=== PATIENT | female | born 1950 | race Hispanic/Latino ===

== ENCOUNTER 2020-09-21 03:32 | Emergency (ER) | payer MEDICARE ==
--- NOTE | 2020-09-21 03:57 | Emergency Department Report ---
ED General Adult HPI - General Chief complaint: GI Bleed Stated complaint: NAUSEA, VOMITING Time Seen by Provider: 09/21/20 03:49 Source: EMS Mode of arrival: Stretcher Limitations: Physical Limitation - History of Present Illness Initial comments: Patient is 70 years old female currently residing at [facility] retirement. Patient has history of alcoholic hepatitis with liver cirrhosis and recently pelvic encephalopathy. Patient brought to the emergency room via EMS for evaluation of possible upper GI bleed. EMS stated that retirement days[facility] staff reported patient has one episode of vomiting with small amount of blood in it. No more vomiting observed by retirement or EMS staff. Patient is alert however she is not communicating well. - Related Data Home Medications Medication Instructions Recorded Confirmed Last Taken Latanoprost 0.005% 1 drop OP QPM 09/06/20 09/17/20 Unknown Timolol 0.5% [Timoptic] 1 drops OP BID 09/06/20 09/17/20 Unknown Previous Rx's Medication Instructions Recorded Last Taken Type ARIPiprazole 5 mg PO QDAY tablet 09/11/20 Unknown Rx Folic Acid [Folvite] 1 mg PO QDAY tablet 09/11/20 Unknown Rx Levothyroxine [Synthroid] 75 mcg PO DAILY@0600 tablet 09/11/20 Unknown Rx Melatonin [Melatonin 5MG TAB] 5 mg PO QHS PRN tablet 09/11/20 Unknown Rx Rifaximin [Xifaxan] 550 mg PO BID tablet 09/11/20 Unknown Rx Thiamine [Vitamin B-1] 100 mg PO QDAY tablet 09/11/20 Unknown Rx traZODone [Desyrel] 50 mg PO QHS tablet 09/11/20 Unknown Rx Cefdinir 300 mg PO BID 5 Days #10 capsule 09/17/20 Unknown Rx Cholecalciferol Vit D3 [Vitamin D3 1,000 unit PO QDAY tablet 09/17/20 Unknown Rx 1,000 UNIT TAB] Lactulose [Cephulac] 20 gm PO Q6HR oral.liqd 09/17/20 Unknown Rx Allergies Allergy/AdvReac Type Severity Reaction Status Date / Time No Known Allergies Allergy Verified 09/05/20 21:27 ED Review of Systems ROS: Stated complaint: NAUSEA, VOMITING Other details as noted in HPI Comment: Unobtainable due to pts medical conditions ED Past Medical Hx - Past Medical History Previous Medical History?: Yes Hx Hypertension: Yes Hx GERD: Yes Hx Dementia: Yes (unspecified) Additional medical history: respiratory failure, ETOH abuse, obesity - Surgical History Past Surgical History?: Yes Additional Surgical History: back - Social History Smoking Status: Never Smoker - Medications Home Medications: Home Medications Medication Instructions Recorded Confirmed Last Taken Type Latanoprost 0.005% 1 drop OP QPM 09/06/20 09/17/20 Unknown History Timolol 0.5% [Timoptic] 1 drops OP BID 09/06/20 09/17/20 Unknown History ARIPiprazole 5 mg PO QDAY tablet 09/11/20 09/17/20 Unknown Rx Folic Acid [Folvite] 1 mg PO QDAY tablet 09/11/20 09/17/20 Unknown Rx Levothyroxine [Synthroid] 75 mcg PO DAILY@0600 tablet 09/11/20 09/17/20 Unknown Rx Melatonin [Melatonin 5MG TAB] 5 mg PO QHS PRN tablet 09/11/20 09/17/20 Unknown Rx Rifaximin [Xifaxan] 550 mg PO BID tablet 09/11/20 09/17/20 Unknown Rx Thiamine [Vitamin B-1] 100 mg PO QDAY tablet 09/11/20 09/17/20 Unknown Rx traZODone [Desyrel] 50 mg PO QHS tablet 09/11/20 09/17/20 Unknown Rx Cefdinir 300 mg PO BID 5 Days #10 capsule 09/17/20 Unknown Rx Cholecalciferol Vit D3 [Vitamin D3 1,000 unit PO QDAY tablet 09/17/20 Unknown Rx 1,000 UNIT TAB] Lactulose [Cephulac] 20 gm PO Q6HR oral.liqd 09/17/20 Unknown Rx ED Physical Exam - General Limitations: Physical Limitation General appearance: alert - Head Head exam: Present: atraumatic, normocephalic, normal inspection - Eye Eye exam: Present: normal appearance, PERRL - ENT ENT exam: Present: normal exam, normal orophraynx, mucous membranes moist - Neck Neck exam: Present: normal inspection, full ROM. Absent: tenderness, meningismus - Respiratory Respiratory exam: Present: normal lung sounds bilaterally - Cardiovascular Cardiovascular Exam: Present: regular rate, normal rhythm, normal heart sounds - GI/Abdominal GI/Abdominal exam: Present: soft, normal bowel sounds. Absent: distended, t enderness, guarding, rebound, rigid, organomegaly, mass, bruit, pulsatile mass, hernia - Back Exam Back exam: Present: normal inspection, full ROM. Absent: CVA tenderness (R), CVA tenderness (L) - Neurological Exam Neurological exam: Present: altered - Psychiatric Psychiatric exam: Present: normal mood - Skin Skin exam: Present: warm, intact, normal color ED Course Vital Signs 09/21/20 03:55 Temperature 98.4 F Pulse Rate 79 Respiratory 16 Rate Blood Pressure 148/93 [Right] O2 Sat by Pulse 99 Oximetry ED Medical Decision Making - Lab Data Result diagrams: 09/21/20 04:17 09/21/20 04:17 - EKG Data -: EKG Interpreted by Me EKG shows normal: sinus rhythm Rate: normal - EKG Data Interpretation: no acute changes - Medical Decision Making Patient is 70 years old female currently residing at [facility] retirement. Patient has history of alcoholic hepatitis with liver cirrhosis and recently pelvic encephalopathy. Patient brought to the emergency room via EMS for evaluation of possible upper GI bleed. [facility] patient has one episode of vomiting with small amount of blood in it. No more vomiting observed by retirement or EMS staff. Patient is alert however she is not communicating well. Patient remained stable in the ER with stable vital sign. No vomiting observed in the emergency room. Labs reviewed and showed a hemoglobin of 11 which is better than patient last admission which was 10. Ammonia level is 75 which is better than the last time which was more than 100. I did not appreciate any emergency at this visit however I documented that patient will need a close follow-up with her GI doctor and patient will need to come back to the ER if she develop any new vomiting or bleeding. Critical care attestation.: If time is entered above; I have spent that time in minutes in the direct care of this critically ill patient, excluding procedure time. ED Disposition Clinical Impression: GI bleed Disposition: DC-01 TO HOME OR SELFCARE Is pt being admited?: No Condition: Stable Instructions: Gastrointestinal Bleeding Referrals: SHERI PRYOR MD [Primary Care Provider] - 3-5 Days Forms: Accompanied Note
[2020-09-21 04:53] LABS: Basophils % (Auto) 0.2 % (0.0-1.8); Eosinophils % (Auto) 0.3 % (0.0-4.3); Hematocrit 33.4 % (30.3-42.9); Lymphocytes # (Auto) 1.5 K/mm3 (1.2-5.4); Lymphocytes % (Auto) 23.5 % (13.4-35.0); Mean Corpuscular HGB Conc 33 % (30-34); Mean Corpuscular Volume 90 fl (79-97); Monocytes # (Auto) 0.7 K/mm3 (0.0-0.8); Platelet Count 190 K/mm3 (140-440); Red Blood Count 3.74 M/mm3 (3.65-5.03)
[2020-09-21 04:55] LABS: Red Cell Distribution Width 22.9 % (13.2-15.2)
[2020-09-21 04:58] LABS: INR 1.37 (0.87-1.13)
[2020-09-21 04:59] LABS: Partial Thromboplastin Time 33.2 Sec. (24.2-36.6)
[2020-09-21 05:14] LABS: Alanine Aminotransferase 21 units/L (7-56); Albumin 2.3 g/dL (3.9-5); Bilirubin,Direct 1.5 mg/dL (0-0.2); Blood Urea Nitrogen 5 mg/dL (7-17); Calcium 8.3 mg/dL (8.4-10.2); Hemolysis Index 4
[2020-09-21 05:21] LABS: BUN/Creatinine Ratio 10
--- NOTE | 2020-09-21 10:09 | Electrocardiograph Report ---
[facility] Test Date: 2020-09-21 Test Time: 04:00:01 Pat Name: MARLENE DOCKERY Department: Room: Gender: F Manager Dental: ALICIA : 1950 Requested By: BURTON ANDERSON Order Number: [id number] Reading MD: Gwen Poe Measurements Intervals [place] Rate: 91 P: 72 ND: 196 QRS: -9 QRSD: 90 T: 93 QT: 417 QTc: 513 Interpretive Statements Sinus rhythm Low voltage, precordial leads Prolonged QT interval Compared to ECG 09/13/2020 16:36:27 Electronically Signed On 09-21-2020 10:09:28 EDT by Gwen Poe
[2020-09-21 10:11] VITALS: BP 129/90
== END 2020-09-21 10:11 | disposition home or self-care (01) ==
LOC: ED 03:32
DX: K92.2 Gastrointestinal hemorrhage, unspecified (principal); I10 Essential (primary) hypertension; K21.9 Gastro-esophageal reflux disease without esophagitis; F03.90 Unspecified dementia, unspecified severity, without behavioral disturbance, psychotic disturbance, mood disturbance, and anxiety; E66.9 Obesity, unspecified; Z68.31 Body mass index [BMI] 31.0-31.9, adult; Z79.899 Other long term (current) drug therapy; Z98.890 Other specified postprocedural states
CPT/HCPCS: 36415; 80048; 80076; 82140; 85025; 85610; 85730; 86850; 86900; 86901; 93005